=== PATIENT | male | born 2005 | race Caucasian/White ===

== ENCOUNTER 2025-04-29 19:23 | Emergency (ER) | payer SELFPAY ==
[2025-04-29] MEDS: Lidocaine 1% 10 ML MDV INJECT ONE (20:23)
[2025-04-29] MEDS: Diphtheria,Pertussis(Acell),Tetanus Vaccine 0.5 ML Syringe IM ONE (20:23)
[2025-04-29] MEDS: Ketorolac 30 MG/ML SDV IM ONE (20:23)
== END 2025-04-29 21:57 | disposition home or self-care (01) ==
LOC: MW.ED 19:23
DX: S81.811A Laceration without foreign body, right lower leg, initial encounter (principal); Z91.010 Allergy to peanuts; Z23 Encounter for immunization; W22.8XXA Striking against or struck by other objects, initial encounter; Y93.89 Activity, other specified
CPT/HCPCS: 12032; 73590-26-RT; 73590-RT; 90471; 90715; 96372; 99283-25; 99284; J1885; J2003